=== PATIENT | female | born 1980 | race African-American/Black ===

== ENCOUNTER 2020-12-11 11:59 | Emergency (ER) | payer BC, MEDICAID ==
[~2020-12-11] VITALS: Ht 162.6 cm; Wt 91.0 kg
[~2020-12-11 11:59] MED LIST: FLEXERIL
[2020-12-11] MEDS ORDERED: FENTANYL CITRATE/PF 50MCG/ML 2ML VIAL IV ONE (13:00)
[2020-12-11] MEDS ORDERED: TETANUS AND DIPHTHERIA TOX/PF 0.5ML SYR (ADULT) IM ONE (13:00)
[2020-12-11 13:30] LABS: BASOPHILS % 0.5 % (0.0-2.0); EOSINOPHILS % 0.4 % (0.0-5.0); HEMATOCRIT. 40.2 % (36.0-48.0); HEMOGLOBIN. 13.5 g/dL (12.0-16.0); LYMPHOCYTES % 7.7 % (20.0-50.0); MEAN CORPUSCULAR HEMOGLOBIN 28.6 pg (28.0-32.0); MEAN CORPUSCULAR VOLUME 85.2 fL (81.0-99.0); MONOCYTES % 4.8 % (2.0-8.0); NEUTROPHILS % 86.6 % (40.0-76.0); PLATELET 205 x1000/uL (130-400); RED BLOOD CELL COUNT 4.71 mill/uL (4.2-5.4); RED CELL DISTRIBUTION WIDTH 13.6 % (11.6-14.6)
[2020-12-11 13:37] LABS: CHLORIDE 109 mEq/L (98-107)
[2020-12-11 13:41] LABS: PROTHROMBIN TIME 10.8 sec (9.6-11.0)
[2020-12-11 13:58] LABS: HCG SCREEN NEGATIVE
[2020-12-11] MEDS ORDERED: LIDOCAINE HCL 1% 20ML VIAL (Pyxis) INJ INFIL ONE (15:15)
[2020-12-11] MEDS ORDERED: BACITRACIN ZINC OINT UDPKT TOP ONE (15:15)
[2020-12-11] MEDS ORDERED: IOHEXOL-300 100 ML BOTTLE ONE (15:32)
[2020-12-11] MEDS ORDERED: KETOROLAC 15MG/ML VIAL IV ONE (16:45)
[2020-12-11] MEDS ORDERED: TOPUD MT (17:26)
[2020-12-11] MEDS ORDERED: IBUP-2029 MT (17:26)
[2020-12-11 18:30] VITALS: BP 119/72
== END 2020-12-11 18:51 | disposition home or self-care (01) ==
LOC: ER 12:18
DX: S81.812A Laceration without foreign body, left lower leg, initial encounter (principal); R07.89 Other chest pain; R10.84 Generalized abdominal pain; M25.571 Pain in right ankle and joints of right foot; M25.562 Pain in left knee; V49.49XA Driver injured in collision with other motor vehicles in traffic accident, initial encounter; Y93.89 Activity, other specified; Y92.89 Other specified places as the place of occurrence of the external cause; Y99.8 Other external cause status; Z98.890 Other specified postprocedural states; Z79.899 Other long term (current) drug therapy
CPT/HCPCS: 12002; 36415; 70450; 71045; 71260; 72125; 73562; 73590; 73610; 73630; 74177; 80053; 84703; 85025; 85610; 90471; 90714; 93005; 96374; 96375; 99285; J1885; J3010; J3490; Q9967; Z7610